=== PATIENT | female | born 1940 | race Two or more races ===

== ENCOUNTER → 2020-09-11 | Outpatient (CLI) | payer MEDICARE, BC ==
[~2020-09-11] MED LIST: OLME40TA26 PO
== END | disposition home or self-care (01) ==
LOC: Rad HDHVI 10:49
PROVIDERS: ATTEND Internal Medicine Cardiovascular Disease
DX: I70.0 Atherosclerosis of aorta (principal); I10 Essential (primary) hypertension; R07.89 Other chest pain; R53.83 Other fatigue
CPT/HCPCS: 93306

== ENCOUNTER → 2020-09-16 | Outpatient (CLI) | payer MEDICARE, BC ==
[~2020-09-16] VITALS: Ht 160 cm; Wt 81.6 kg
[~2020-09-16] MED LIST changes: +ADENOSINE 69 MG in GIVE UN-DILUTED 0 ML IV ONE; +ADENOSINE 90 MG/30 ML INJ IV ONE
== END | disposition home or self-care (01) ==
LOC: Rad HDHVI 13:25
PROVIDERS: ATTEND Internal Medicine Cardiovascular Disease
DX: I10 Essential (primary) hypertension (principal); R07.89 Other chest pain
CPT/HCPCS: 78452; 93005; 96374; 96375; A9500; J0153

== ENCOUNTER → 2020-12-21 | Outpatient (CLI) | payer MEDICARE, BC ==
[~2020-12-21] MED LIST changes: -ADENOSINE 69 MG in GIVE UN-DILUTED 0 ML IV ONE; -ADENOSINE 90 MG/30 ML INJ IV ONE; +READI-CAT 2 (BARIUM SULF)(VANILLA SMOOTHIE) 450ML ONE
== END | disposition home or self-care (01) ==
LOC: Rad HDHVI 10:30
PROVIDERS: ATTEND Internal Medicine Cardiovascular Disease
DX: K44.9 Diaphragmatic hernia without obstruction or gangrene (principal); N20.0 Calculus of kidney; I70.0 Atherosclerosis of aorta; J98.11 Atelectasis; M43.16 Spondylolisthesis, lumbar region; M47.814 Spondylosis without myelopathy or radiculopathy, thoracic region; R10.9 Unspecified abdominal pain; Z90.49 Acquired absence of other specified parts of digestive tract
CPT/HCPCS: 74176

== ENCOUNTER 2021-07-21 16:30 | Inpatient (IN) | payer MEDICARE, BC ==
[~2021-07-21] VITALS: Ht 160 cm; Wt 77.6 kg
[~2021-07-21 16:30] MED LIST changes: -READI-CAT 2 (BARIUM SULF)(VANILLA SMOOTHIE) 450ML ONE
[2021-07-21] MEDS ORDERED: SACU1TAB PO (18:35)
[2021-07-21] MEDS ORDERED: HYDR-4798 PO (18:39)
[2021-07-21] MEDS ORDERED: NAPR375T27 PO (18:39)
[2021-07-21] MEDS ORDERED: CYCL-839 PO (18:39)
[2021-07-21] MEDS ORDERED: ALPR0.254 PO (18:39)
[2021-07-21] MEDS ORDERED: FAMO-12 PO (18:39)
[2021-07-21] MEDS ORDERED: HYDROmorphone HCL 2 MG/ML VL IV PRN (19:45)
[2021-07-21 22:00] VITALS: BP 112/55
[2021-07-22 05:00] VITALS: BP 102/60
[2021-07-22 05:31] LABS: Basophils # (auto) 0 10 ^3/uL (0-0.2); Basophils % (auto) 0.1 % (0.0-2.0); Eosinophils # (auto) 0 10 ^3/uL (0-0.8); Hematocrit 41.5 % (36.0-46.0); Hemoglobin 14.2 g/dL (12.2-16.2); Lymphocytes # (auto) 0.9 10 ^3/uL (0.4-5.4); Mean Corpuscular Hemoglobin 33.1 pg (28.0-32.0); Mean Corpuscular Hgb Conc. 34.2 g/dL (32.0-36.0); Mean Corpuscular Volume 96.8 fL (80.0-100.0); Monocytes # (auto) 0.4 10 ^3/uL (0-1.3); Monocytes % (auto) 5.6 % (0.0-12.0); Neutrophils # (auto) 6.5 10 ^3/uL (1.6-8.6); Neutrophils % (auto) 82.3 % (37.0-80.0); Nucleated Red Blood Cells % 0.1 %; Red Blood Cells 4.28 10^6/uL (4.0-5.20); Red Cell Distribution Width 13.1 % (11.8-14.3); White Blood Cell 7.9 10^3/uL (4.4-10.8)
[2021-07-22 06:14] LABS: Albumin 2.5 g/dL (3.4-5.0); BUN/Creatinine Ratio 72.4; Calcium 7.7 mg/dL (8.5-10.1)
[2021-07-22 06:16] LABS: Bilirubin, Total 0.4 mg/dL (0.2-1.0); Total Protein 5.4 g/dL (6.4-8.2)
[2021-07-22] MEDS: KETOROLAC TROMETH 30 MG/ML 1ML VIAL IV PRN (07:36)
[2021-07-22 09:00] VITALS: BP 115/50
[2021-07-22] MEDS: HYDROcodone-ACET 10/325MG TAB PO PRN ×3 (12:47→23:26)
[2021-07-22 13:00] VITALS: BP 18/54
[2021-07-22] MEDS: D5W/SOD CHL 0.45%/KCL 40MEQ 1,000 ML IV SCH ×2 (14:49→23:25)
[2021-07-22 17:00] VITALS: BP 143/56
[2021-07-22 21:59] VITALS: BP 130/68
[2021-07-23 05:09] VITALS: BP 125/55
[2021-07-23] MEDS: HYDROcodone-ACET 10/325MG TAB PO PRN ×2 (06:22→21:52)
[2021-07-23 08:15] VITALS: BP 108/54
[2021-07-23 09:00] VITALS: BP 108/54
[2021-07-23] MEDS: D5W/SOD CHL 0.45%/KCL 40MEQ 1,000 ML IV SCH ×2 (09:25→18:45)
[2021-07-23 16:56] VITALS: BP 130/45
[2021-07-23 20:00] VITALS: BP 128/75
[2021-07-23 22:12] VITALS: BP 132/56
[2021-07-24] MEDS: D5W/SOD CHL 0.45%/KCL 40MEQ 1,000 ML IV SCH ×3 (01:58→21:20)
[2021-07-24] MEDS: HYDROcodone-ACET 10/325MG TAB PO PRN ×2 (04:49→16:15)
[2021-07-24 05:17] VITALS: BP 115/53
[2021-07-24 09:00] VITALS: BP 175/97
[2021-07-24] MEDS: KETOROLAC TROMETH 30 MG/ML 1ML VIAL IV PRN (09:15)
[2021-07-24] MEDS: HYDROmorphone HCL 2 MG/ML VL IV PRN ×2 (10:29→18:38)
[2021-07-24 13:00] VITALS: BP 126/70
[2021-07-24 17:00] VITALS: BP 116/55
[2021-07-24 22:00] VITALS: BP 116/63
[2021-07-25] MEDS: HYDROmorphone HCL 2 MG/ML VL IV PRN ×3 (04:27→20:57)
[2021-07-25 05:00] VITALS: BP 132/67
[2021-07-25 09:00] VITALS: BP 180/79
[2021-07-25] MEDS: D5W/SOD CHL 0.45%/KCL 40MEQ 1,000 ML IV SCH (09:28)
[2021-07-25 13:00] VITALS: BP 164/75
[2021-07-25] MEDS: HYDROcodone-ACET 10/325MG TAB PO PRN (14:19)
[2021-07-25 17:00] VITALS: BP 129/64
[2021-07-25] MEDS: ALPRAZolam 0.25 MG TAB PO PRN (19:49)
[2021-07-25 22:00] VITALS: BP 124/61
[2021-07-26 05:30] VITALS: BP 106/50
[2021-07-26 07:06] LABS: Basophils # (auto) 0.1 10 ^3/uL (0-0.2); Basophils % (auto) 0.6 % (0.0-2.0); Eosinophils # (auto) 0 10 ^3/uL (0-0.8); Eosinophils % (auto) 0.3 % (0.0-7.0); Hematocrit 42.5 % (36.0-46.0); Hemoglobin 14.6 g/dL (12.2-16.2); Lymphocytes # (auto) 1.4 10 ^3/uL (0.4-5.4); Lymphocytes % (auto) 13.5 % (10.0-50.0); Mean Corpuscular Hemoglobin 33.3 pg (28.0-32.0); Mean Corpuscular Hgb Conc. 34.3 g/dL (32.0-36.0); Mean Corpuscular Volume 96.9 fL (80.0-100.0); Monocytes # (auto) 0.7 10 ^3/uL (0-1.3); Monocytes % (auto) 6.5 % (0.0-12.0); Neutrophils # (auto) 8.5 10 ^3/uL (1.6-8.6); Neutrophils % (auto) 79.1 % (37.0-80.0); Nucleated Red Blood Cells % 0.1 %; Red Blood Cells 4.39 10^6/uL (4.0-5.20); Red Cell Distribution Width 12.6 % (11.8-14.3); White Blood Cell 10.7 10^3/uL (4.4-10.8)
[2021-07-26] MEDS: HYDROmorphone HCL 2 MG/ML VL IV PRN (08:51)
[2021-07-26 09:16] VITALS: BP 125/57
[2021-07-26 13:00] VITALS: BP 138/61
[2021-07-26 14:44] LABS: Albumin 2.8 g/dL (3.4-5.0); Calcium 8.3 mg/dL (8.5-10.1); Potassium 4.3 mmol/L (3.5-5.1)
[2021-07-26 14:47] LABS: BUN/Creatinine Ratio 37.9; Bilirubin, Total 0.5 mg/dL (0.2-1.0); Total Protein 5.9 g/dL (6.4-8.2)
[2021-07-26 17:00] VITALS: BP 138/58
[2021-07-26] MEDS: ALPRAZolam 0.25 MG TAB PO PRN (17:22)
[2021-07-26 20:26] VITALS: BP 136/69
== END 2021-07-26 20:50 | disposition home or self-care (01) | DRG 552 ==
LOC: WEST WING 17:30
PROVIDERS: ADMIT Internal Medicine Cardiovascular Disease; ATTEND Internal Medicine Cardiovascular Disease
DX: M54.9 Dorsalgia, unspecified (principal); I10 Essential (primary) hypertension; E86.9 Volume depletion, unspecified; Z20.822 Contact with and (suspected) exposure to COVID-19
CPT/HCPCS: 36415; 72131; 72148; 78306; 80053; 84155; 84156; 84165; 84166; 85025; 85652; 87426; 97116; 97530; G0378; J1885

== ENCOUNTER → 2021-11-16 | Outpatient (CLI) | payer MEDICARE, BC ==
[~2021-11-16] MED LIST changes: +ALPR0.254 PO; +CYCL-839 PO; +FAMO-12 PO; +HYDR-4798 PO; +NAPR375T27 PO; +SACU1TAB PO
[2021-11-16 11:31] LABS: Basophils # (auto) 0.1 10 ^3/uL (0-0.2); Basophils % (auto) 1.2 % (0.0-2.0); Eosinophils # (auto) 0 10 ^3/uL (0-0.8); Eosinophils % (auto) 0.8 % (0.0-7.0); Hematocrit 41.7 % (36.0-46.0); Hemoglobin 14.1 g/dL (12.2-16.2); Lymphocytes # (auto) 1.5 10 ^3/uL (0.4-5.4); Mean Corpuscular Hgb Conc. 33.8 g/dL (32.0-36.0); Mean Corpuscular Volume 97.5 fL (80.0-100.0); Monocytes # (auto) 0.3 10 ^3/uL (0-1.3); Monocytes % (auto) 6.2 % (0.0-12.0); Neutrophils # (auto) 3.7 10 ^3/uL (1.6-8.6); Neutrophils % (auto) 65.8 % (37.0-80.0); Nucleated Red Blood Cells % 0.1 %; Red Blood Cells 4.28 10^6/uL (4.0-5.20); Red Cell Distribution Width 12.6 % (11.8-14.3); White Blood Cell 5.6 10^3/uL (4.4-10.8)
[2021-11-16 11:48] LABS: Potassium 4.1 mmol/L (3.5-5.1)
[2021-11-16 11:55] LABS: Free T4 (Free Thyroxine) 1.21 ng/dL (0.89-1.76)
[2021-11-16 12:05] LABS: Albumin 3.6 g/dL (3.4-5.0); BUN/Creatinine Ratio 31.7; Bilirubin, Total 0.6 mg/dL (0.2-1.0); Total Protein 7.1 g/dL (6.4-8.2)
== END | disposition home or self-care (01) ==
LOC: Rad HDHVI 08:48
PROVIDERS: ATTEND Internal Medicine Cardiovascular Disease
DX: E11.9 Type 2 diabetes mellitus without complications (principal); D51.3 Other dietary vitamin B12 deficiency anemia; D64.9 Anemia, unspecified; E55.9 Vitamin D deficiency, unspecified; I10 Essential (primary) hypertension; R00.2 Palpitations; R53.1 Weakness; R30.0 Dysuria; I05.0 Rheumatic mitral stenosis; I35.0 Nonrheumatic aortic (valve) stenosis
CPT/HCPCS: 36415; 80053; 80061; 82306; 82607; 83036; 84439; 84443; 85025; 93306

== ENCOUNTER → 2023-01-04 | Outpatient (CLI) | payer MEDICARE, BC ==
[~2023-01-04] VITALS: Ht 167.6 cm; Wt 72.6 kg
[~2023-01-04] MED LIST changes: +ADENOSINE 61 MG in GIVE UN-DILUTED 0 ML IV ONE; +ADENOSINE 90 MG/30 ML INJ IV ONE
== END | disposition home or self-care (01) ==
LOC: Rad HDHVI 13:36
PROVIDERS: ATTEND Internal Medicine Cardiovascular Disease
DX: Z01.810 Encounter for preprocedural cardiovascular examination (principal); I10 Essential (primary) hypertension; E78.00 Pure hypercholesterolemia, unspecified
CPT/HCPCS: 78452; 93005; 96374; 96375; A9500; J0153

== ENCOUNTER → 2023-01-05 | Outpatient (CLI) | payer MEDICARE, BC ==
[~2023-01-05] MED LIST changes: -ADENOSINE 61 MG in GIVE UN-DILUTED 0 ML IV ONE; -ADENOSINE 90 MG/30 ML INJ IV ONE
== END | disposition home or self-care (01) ==
LOC: Rad HDHVI 13:44
PROVIDERS: ATTEND Internal Medicine Cardiovascular Disease
DX: I34.0 Nonrheumatic mitral (valve) insufficiency (principal); I10 Essential (primary) hypertension; R06.02 Shortness of breath
CPT/HCPCS: 93306

== ENCOUNTER 2023-01-17 06:15 | Inpatient (IN) | payer OTHER, MEDICARE, BC ==
[2023-01-05 11:27] LABS: Basophils # (auto) 0.1 10 ^3/uL (0-0.2); Basophils % (auto) 1.1 % (0.0-2.0); Eosinophils # (auto) 0.1 10 ^3/uL (0-0.8); Eosinophils % (auto) 1.2 % (0.0-7.0); Hematocrit 40.4 % (36.0-46.0); Hemoglobin 13.9 g/dL (12.2-16.2); Lymphocytes # (auto) 1.7 10 ^3/uL (0.4-5.4); Lymphocytes % (auto) 31.6 % (10.0-50.0); Mean Corpuscular Hgb Conc. 34.5 g/dL (32.0-36.0); Mean Corpuscular Volume 98.6 fL (80.0-100.0); Monocytes # (auto) 0.4 10 ^3/uL (0-1.3); Neutrophils # (auto) 3.2 10 ^3/uL (1.6-8.6); Neutrophils % (auto) 59.1 % (37.0-80.0); Nucleated Red Blood Cells % 0.2 %; Red Cell Distribution Width 12.7 % (11.8-14.3); White Blood Cell 5.4 10^3/uL (4.4-10.8)
[2023-01-05 11:44] LABS: INR 1.01 (0.9-1.15); Partial Thromboplastin Time 32.5 sec (24.6-33.4)
[2023-01-05 11:59] LABS: Urine Bacteria NONE SEEN /hpf (None Seen); Urine Blood Negative /uL (Negative); Urine Mucus FEW (None Seen); Urine WBC 2 /hpf (0 - 5)
[2023-01-05 12:44] LABS: Albumin 3.4 g/dL (3.4-5.0); BUN/Creatinine Ratio 38.9; Calcium 8.8 mg/dL (8.5-10.1)
[2023-01-05 12:47] LABS: Bilirubin, Total 0.5 mg/dL (0.2-1.0); Total Protein 7.2 g/dL (6.4-8.2)
[~2023-01-17] VITALS: Ht 160 cm; Wt 79.4 kg
[~2023-01-17 06:15] MED LIST changes: +ACETAMINOPHEN 500 MG TAB PO ONE; +CELECOXIB 100 MG CAP PO ONE; +DexAMETHasone SOD PHOS 10MG/1ML VIAL INJ ONE; +GABAPENTIN 100 MG CAP PO ONE; +GLYCOPYRROLATE 0.2 MG/ML 1ML VIAL ONE; +LIDOCAINE 2% (LOCAL ANESTH.) PF 5ml SDV ONE; +LIDOCAINE 4MG/ML IV SOLN 500 ML IV SCH; +MAGNESIUM SULFATE 1GM/100ML 100 ML IV ONE; -NAPR375T27 PO; +ONDANSETRON HCL 4 MG/2 ML VIAL ONE; +PROPOFOL 10 MG/ML 20 ML IV ONE; +ROCURONIUM 10MG/ML 10ML VIAL IV ONE; +SODIUM CHLORIDE LOCK 10 ML ONE; +SUGAMMADEX 200mg/2ml Vial (100MG/ML) IV ONE
[2023-01-17] MEDS ORDERED: MEPERIDINE HCL (50 MG/ML) 1 ML VIAL ONE (07:14)
[2023-01-17] MEDS ORDERED: fentaNYL CITRATE 100 MCG/2 ML VL ONE (07:14)
[2023-01-17] MEDS ORDERED: MIDAZOLAM HCL 2MG/2ML 2ml VIAL (1mg/ml) ONE (07:14)
[2023-01-17] MEDS ORDERED: ceFAZolin 1GM/50ML 0 ML IV ONE (07:20)
[2023-01-17] MEDS ORDERED: VANCOMYCIN HCL 1000 MG VL ONE (07:23)
[2023-01-17] MEDS ORDERED: ETOMIDATE (2MG/ML) 20ML VIAL IV ONE (08:02)
[2023-01-17] MEDS ORDERED: DexAMETHasone SOD PHOS 10MG/1ML VIAL INJ ONE (08:02)
[2023-01-17] MEDS ORDERED: LABETALOL HCL 5 MG/ML 4ML SYRINGE IV PRN (09:45)
[2023-01-17] MEDS ORDERED: MORPHINE SULFATE 4 MG/ML SYR/VIAL IV PRN (09:45)
[2023-01-17] MEDS ORDERED: HYDROmorphone HCL 2 MG/ML VL/or syr IV PRN (09:45)
[2023-01-17] MEDS ORDERED: MIDAZOLAM HCL 2MG/2ML 2ml VIAL (1mg/ml) IV PRN (09:45)
[2023-01-17] MEDS ORDERED: ONDANSETRON HCL 4 MG/2 ML VIAL IV PRN ×2 (09:45→12:15)
[2023-01-17] MEDS ORDERED: ePHEDrine SULFATE 50 MG/ML AMP IV PRN (09:45)
[2023-01-17] MEDS ORDERED: NITROGLYCERIN 0.4 MG SL TAB SL PRN (12:15)
[2023-01-17] MEDS ORDERED: MORPHINE SULFATE INJ 2 MG/ml SYRG IV PRN ×2 (12:15)
[2023-01-17] MEDS ORDERED: ACETAMINOPHEN 325 MG TAB PO PRN (12:15)
[2023-01-17] MEDS: D5W/SOD CHLO 0.9% 1,000 ML IV SCH ×2 (12:15→23:01)
[2023-01-17] MEDS ORDERED: ACETAMINOPHEN 325 MG TAB PO ONE (12:15)
[2023-01-17] MEDS: CYCLOBENZAPRINE HCL 10 MG TAB PO SCH ×2 (15:29→23:25)
[2023-01-17 16:00] VITALS: BP 135/67
[2023-01-17] MEDS: HYDROcodone-ACET 10/325MG TAB PO PRN (18:17)
[2023-01-17 22:00] VITALS: BP 115/42
[2023-01-17] MEDS: DOCUSATE SOD 100 MG CAP PO SCH (23:25)
[2023-01-17] MEDS: SACUBITRIL-VALSARTAN 24mg/26mg TAB PO SCH (23:25)
[2023-01-18] MEDS: HYDROcodone-ACET 10/325MG TAB PO PRN (04:35)
[2023-01-18 05:00] VITALS: BP 120/45
[2023-01-18] MEDS: CYCLOBENZAPRINE HCL 10 MG TAB PO SCH ×2 (05:19→13:35)
[2023-01-18 08:57] VITALS: BP 119/51
[2023-01-18] MEDS: DOCUSATE SOD 100 MG CAP PO SCH (09:07)
[2023-01-18] MEDS: SACUBITRIL-VALSARTAN 24mg/26mg TAB PO SCH (09:09)
[2023-01-18] MEDS: D5W/SOD CHLO 0.9% 1,000 ML IV SCH (09:10)
[2023-01-18] MEDS ORDERED: FAMOTIDINE 20 MG TAB PO SCH (10:00)
[2023-01-18 13:00] VITALS: BP 102/49
[2023-01-18 14:42] VITALS: BP 102/49
== END 2023-01-18 15:39 | disposition home or self-care (01) | DRG 517 ==
LOC: SUR 06:15 → OVERFLOW 12:17 → TELE-WESTW 15:43
PROVIDERS: ADMIT Orthopaedic Surgery; ATTEND Internal Medicine
PROC: BR19ZZZ Fluoroscopy of Lumbar Spine (ICD-10-PCS; 2023-01-17)
PROC: 0SP004Z Removal of Internal Fixation Device from Lumbar Vertebral Joint, Open Approach (ICD-10-PCS; principal; 2023-01-17 07:34)
DX: T84.84XA Pain due to internal orthopedic prosthetic devices, implants and grafts, initial encounter (principal); Y83.1 Surgical operation with implant of artificial internal device as the cause of abnormal reaction of the patient, or of later complication, without mention of misadventure at the time of the procedure; I10 Essential (primary) hypertension; K21.9 Gastro-esophageal reflux disease without esophagitis; M54.16 Radiculopathy, lumbar region; Z20.822 Contact with and (suspected) exposure to COVID-19; E66.9 Obesity, unspecified; G47.33 Obstructive sleep apnea (adult) (pediatric); Z68.31 Body mass index [BMI] 31.0-31.9, adult; Y92.89 Other specified places as the place of occurrence of the external cause; Z88.5 Allergy status to narcotic agent; Z88.1 Allergy status to other antibiotic agents; Z91.041 Radiographic dye allergy status
CPT/HCPCS: 36415; 72100; 76000; 80053; 81001; 85025; 85610; 85730; 86850; 86870; 86900; 86901; G0378; J0690; J1100; J2001; J2250; J2405; J2704; J3490

== ENCOUNTER → 2024-02-28 | Outpatient (CLI) | payer MEDICARE, BC ==
[~2024-02-28] MED LIST changes: -ACETAMINOPHEN 500 MG TAB PO ONE; -CELECOXIB 100 MG CAP PO ONE; -DexAMETHasone SOD PHOS 10MG/1ML VIAL INJ ONE; -GABAPENTIN 100 MG CAP PO ONE; -GLYCOPYRROLATE 0.2 MG/ML 1ML VIAL ONE; -LIDOCAINE 2% (LOCAL ANESTH.) PF 5ml SDV ONE; -LIDOCAINE 4MG/ML IV SOLN 500 ML IV SCH; -MAGNESIUM SULFATE 1GM/100ML 100 ML IV ONE; -OLME40TA26 PO; +OLME40TA78 PO; -ONDANSETRON HCL 4 MG/2 ML VIAL ONE; -PROPOFOL 10 MG/ML 20 ML IV ONE; -ROCURONIUM 10MG/ML 10ML VIAL IV ONE; -SODIUM CHLORIDE LOCK 10 ML ONE; -SUGAMMADEX 200mg/2ml Vial (100MG/ML) IV ONE
== END | disposition home or self-care (01) ==
LOC: Rad HDHVI 12:58
PROVIDERS: ATTEND Internal Medicine Cardiovascular Disease
DX: Q25.46 Tortuous aortic arch (principal); R07.89 Other chest pain; I10 Essential (primary) hypertension
CPT/HCPCS: 93880

== ENCOUNTER → 2024-11-19 | Outpatient (CLI) | payer MEDICARE, BC ==
--- NOTE | 2024-11-19 12:33 | DVH ---
XY CHEST TWO VIEWS ROUTINE CLINICAL HISTORY: SOB COMPARISON: None TECHNIQUE: Frontal and lateral view of the chest was obtained FINDINGS: Lines and Tubes: None Lungs: No focal consolidation. Pleura: No effusion. No pneumothorax. Cardiomediastinal contours: Unremarkable Bones: No acute osseous abnormality. IMPRESSION: No acute cardiopulmonary disease.
--- NOTE | 2024-11-19 12:34 | DVH ---
EXAM: XY R HIP COMPLETE XRAY CLINICAL INDICATION: RIGHT HIP PAIN TECHNIQUE: XY R HIP COMPLETE XRAY Comparison: None FINDINGS/IMPRESSION: There is no evidence of acute fracture or dislocation. Moderate right hip osteoarthritis. The alignment is anatomical. There is no radiopaque foreign body.
== END | disposition home or self-care (01) ==
LOC: Rad HDHVI 10:58
PROVIDERS: ATTEND Internal Medicine Cardiovascular Disease
DX: M16.11 Unilateral primary osteoarthritis, right hip (principal); R06.02 Shortness of breath; M25.551 Pain in right hip
CPT/HCPCS: 71046

== ENCOUNTER → 2024-12-11 | Outpatient (CLI) | payer MEDICARE, BC | END | disposition home or self-care (01) | LOC: Rad HDHVI 13:56 | PROVIDERS: ATTEND Internal Medicine Cardiovascular Disease | DX: R22.43 Localized swelling, mass and lump, lower limb, bilateral (principal) | CPT/HCPCS: 93970 ==

== ENCOUNTER → 2025-01-01 | Outpatient (CLI) | payer MEDICARE, BC ==
[~2025-01-01] VITALS: Ht 33 cm; Wt 0.5 kg
[2025-01-01 12:06] VITALS: BP 97/48; PULSE 86; RESP 16; O2SAT 91
[2025-01-01] MEDS: ONDANSETRON HCL 4 MG/2 ML VIAL ONE (12:09)
[2025-01-01] MEDS: ONDANSETRON HCL 4 MG/2 ML VIAL IV ONE (12:21)
[2025-01-01 12:36] VITALS: BP 93/49; PULSE 85; RESP 16; O2SAT 91
== END | disposition home or self-care (01) ==
LOC: CHF HDHVI 12:02
PROVIDERS: ATTEND Internal Medicine Cardiovascular Disease
DX: R11.0 Nausea (principal)
CPT/HCPCS: 96374; G0463; J2405

== ENCOUNTER → 2025-01-08 | Outpatient (CLI) | payer MEDICARE, BC | END | disposition home or self-care (01) | LOC: Rad HDHVI 15:41 | PROVIDERS: ATTEND Internal Medicine Cardiovascular Disease | DX: I82.409 Acute embolism and thrombosis of unspecified deep veins of unspecified lower extremity (principal) | CPT/HCPCS: 93970 ==

== ENCOUNTER → 2025-02-25 | Outpatient (CLI) | payer MEDICARE, BC ==
--- NOTE | 2025-02-25 13:45 | DVH ---
XY CHEST TWO VIEWS ROUTINE, HISTORY: PRE OP COMPARISON: XY CHEST TWO VIEWS ROUTINE on DOS: 11/19/24 XY CHEST TWO VIEWS ROUTINE on DOS: 11/19/24 TECHNICAL DATA: 2 view of the chest was obtained. FINDINGS: Lines and tubes: None Cardiomediastinal silhouette: normal Pulmonary vasculature: normal Lung expansion: normal Lung airspace: Right basilar subsegmental atelectasis with small right pleural effusion. Lung interstitium: normal Pleura: Pneumothorax: no Bones: Unremarkable Other: no IMPRESSION: Right basilar subsegmental atelectasis with small right pleural effusion.
== END | disposition home or self-care (01) ==
LOC: Rad HDHVI 10:02
PROVIDERS: ATTEND Internal Medicine Cardiovascular Disease
DX: Z01.818 Encounter for other preprocedural examination (principal); J90 Pleural effusion, not elsewhere classified; J98.11 Atelectasis
CPT/HCPCS: 71046

== ENCOUNTER → 2025-02-26 | Outpatient (CLI) | payer MEDICARE, BC | END | disposition home or self-care (01) | LOC: Rad HDHVI 10:57 | PROVIDERS: ATTEND Internal Medicine Cardiovascular Disease | DX: Z01.810 Encounter for preprocedural cardiovascular examination (principal); I08.1 Rheumatic disorders of both mitral and tricuspid valves | CPT/HCPCS: 93306 ==

== ENCOUNTER → 2025-03-04 | Outpatient (CLI) | payer MEDICARE, BC ==
[~2025-03-04] VITALS: Ht 160 cm; Wt 78.9 kg
[~2025-03-04] MED LIST changes: +ADENOSINE 66 MG in GIVE UN-DILUTED 0 ML IV ONE; +ADENOSINE 90 MG/30 ML INJ IV ONE
== END | disposition home or self-care (01) ==
LOC: Rad HDHVI 12:55
PROVIDERS: ATTEND Internal Medicine Cardiovascular Disease
DX: Z01.810 Encounter for preprocedural cardiovascular examination (principal); I49.1 Atrial premature depolarization; I11.0 Hypertensive heart disease with heart failure; I50.33 Acute on chronic diastolic (congestive) heart failure; E78.00 Pure hypercholesterolemia, unspecified; I87.2 Venous insufficiency (chronic) (peripheral); R06.02 Shortness of breath; R60.9 Edema, unspecified
CPT/HCPCS: 78452; 93017; A9500; J0153

== ENCOUNTER 2025-08-20 11:21 | Outpatient (CLI) | payer MEDICARE, BC ==
[~2025-08-20 11:21] MED LIST changes: -ADENOSINE 66 MG in GIVE UN-DILUTED 0 ML IV ONE; -ADENOSINE 90 MG/30 ML INJ IV ONE
[2025-08-20 11:26] VITALS: BP 155/57; PULSE 63; RESP 17; O2SAT 94
[2025-08-20] MEDS: BUMETANIDE 1mg/4ml VIAL (0.25mg/ml) ONE (11:29)
[2025-08-20] MEDS: POTASSIUM CHL 20 Meq TABLET PO ONE ×2 (11:29→11:35)
[2025-08-20] MEDS: BUMETANIDE 1mg/4ml VIAL (0.25mg/ml) IV ONE (11:34)
[2025-08-20 12:10] VITALS: BP 170/58; PULSE 70; RESP 17; O2SAT 94
== END 2025-08-22 17:00 | disposition home or self-care (01) ==
LOC: CHF HDHVI 11:21
PROVIDERS: ATTEND Internal Medicine Cardiovascular Disease
DX: I11.0 Hypertensive heart disease with heart failure (principal); I50.33 Acute on chronic diastolic (congestive) heart failure; E78.00 Pure hypercholesterolemia, unspecified; R60.9 Edema, unspecified; M16.11 Unilateral primary osteoarthritis, right hip; K21.9 Gastro-esophageal reflux disease without esophagitis; G47.33 Obstructive sleep apnea (adult) (pediatric); E11.9 Type 2 diabetes mellitus without complications; Z88.1 Allergy status to other antibiotic agents; Z88.5 Allergy status to narcotic agent
CPT/HCPCS: 96374; G0463

== ENCOUNTER 2025-08-27 12:21 | Outpatient (CLI) | payer MEDICARE, BC ==
[2025-08-27 12:20] VITALS: BP 134/61; PULSE 72; RESP 18; O2SAT 95
[2025-08-27] MEDS: BUMETANIDE 1mg/4ml VIAL (0.25mg/ml) ONE (12:30)
[2025-08-27] MEDS: POTASSIUM CHL 10 Meq TABLET PO ONE (12:30)
[2025-08-27] MEDS: BUMETANIDE 1mg/4ml VIAL (0.25mg/ml) IV ONE (12:34)
[2025-08-27] MEDS: POTASSIUM CHL 20 Meq TABLET PO ONE (12:35)
[2025-08-27 13:08] VITALS: BP 133/53; PULSE 70; RESP 16; O2SAT 95
== END 2025-08-27 17:00 | disposition home or self-care (01) ==
LOC: CHF HDHVI 12:21
PROVIDERS: ATTEND Internal Medicine Cardiovascular Disease
DX: I11.0 Hypertensive heart disease with heart failure (principal); I50.33 Acute on chronic diastolic (congestive) heart failure; R60.9 Edema, unspecified; E11.9 Type 2 diabetes mellitus without complications; K21.9 Gastro-esophageal reflux disease without esophagitis; E78.00 Pure hypercholesterolemia, unspecified; G47.33 Obstructive sleep apnea (adult) (pediatric); M16.11 Unilateral primary osteoarthritis, right hip; Z88.5 Allergy status to narcotic agent; Z88.1 Allergy status to other antibiotic agents
CPT/HCPCS: 96374; G0463